=== PATIENT | female | born 1990 | race Caucasian/White ===

== ENCOUNTER 2021-02-08 19:01 | Emergency (ER) | payer SELFPAY ==
[2021-02-08] MEDS ORDERED: Sterile Water 0 ML ONE (19:22)
[2021-02-08] MEDS ORDERED: cefTRIAXone\\ROCEPHIN 1 GM VIAL ONE (19:22)
[2021-02-08] MEDS ORDERED: Lidocaine 1% PF 5 ML VIAL ONE (19:22)
[2021-02-08] MEDS ORDERED: Sterile Water 10 ML ONE (19:23)
[2021-02-08] MEDS ORDERED: HYDROcodone/Acetaminophen 10/325 mg Tablet ONE (19:31)
== END 2021-02-08 19:35 | disposition home or self-care (01) ==
LOC: BURERS 19:01
DX: K08.89 Other specified disorders of teeth and supporting structures (principal); F17.210 Nicotine dependence, cigarettes, uncomplicated
CPT/HCPCS: 99282; J0696